=== PATIENT | female | born 1985 | race Caucasian/White ===

== ENCOUNTER 2020-02-29 13:12 | Emergency (ER) | payer BC, OTHER ==
[2020-02-29] MEDS ORDERED: Fluorescein 1 MG Ophth Strip EYERT ONE (13:45)
--- NOTE | 2020-02-29 14:07 | EDM.PDOC ---
ED HPI GENERAL MEDICAL PROBLEM - General Chief Complaint: Eye Problems Stated Complaint: R EYE INJURY Time Seen by Provider: 02/29/20 13:35 Source of Information: Reports: Patient History Limitations: Reports: No Limitations - History of Present Illness INITIAL COMMENTS - FREE TEXT/NARRATIVE: The patient presents with right eye irritation. The patient is a home health nurse and she got some of her patient's medicine in her right eye. She was putting some cuvposa down a G-tube and some sprayed in her right eye. She irrigated about 4 times. This happened on Sunday. She now has some eye irritation and some redness. She has no vision changes. Onset: Sudden Duration: Day(s): Location: Reports: Other (right eye) Quality: Reports: Ache Severity: Moderate Improves with: Reports: None Worsens with: Reports: None Associated Symptoms: Reports: No Other Symptoms Head Pain Score (Numeric/FACES): 4 - Related Data Allergies Allergy/AdvReac Type Severity Reaction Status Date / Time Penicillins Allergy Hives Verified 02/29/20 13:36 codeine AdvReac Severe Anxiety Verified 02/29/20 13:36 Home Meds: Home Meds Ciprofloxacin [Ciprofloxacin 0.3% Ophth Soln] 1 drop EYERT Q4HR #1 bottle 02/29/20 [Rx] Past Medical History Musculoskeletal History: Reports: Fibromyalgia, Other (See Below) Other Musculoskeletal History: autoimmune d/o - Past Surgical History HEENT Surgical History: Reports: Eye Surgery, Other (See Below) Other HEENT Surgeries/Procedures: right eye tendon repair as an infant Social & Family History - Tobacco Use Smoking Status *Q: Current Every Day Smoker Years of Tobacco use: 15 Packs/Tins Daily: 0.5 - Caffeine Use Caffeine Use: Reports: Coffee - Recreational Drug Use Recreational Drug Use: No ED ROS GENERAL - Review of Systems Review Of Systems: See Below Constitutional: Reports: No Symptoms HEENT: Reports: Eye Pain (right) Respiratory: Reports: No Symptoms Cardiovascular: Reports: No Symptoms Endocrine: Reports: No Symptoms GI/Abdominal: Reports: No Symptoms : Reports: No Symptoms Musculoskeletal: Reports: No Symptoms Skin: Reports: No Symptoms Neurological: Reports: No Symptoms ED EXAM GENERAL W FULL EYE - Physical Exam Exam: See Below Exam Limited By: No Limitations General Appearance: Alert, No Apparent Distress Visual Acuity (R) 20/: 20 Visual Acuity (L) 20/: 100 With Correction: No Eyelids: Bilateral: Normal Appearance Conjunctiva & Sclera: Right: Injected Cornea Exam: Right: Corneal Abrasion (small) Extraocular Movements: Bilateral: Intact Pupillary Reaction: Bilateral: Brisk Anterior Chamber: Right: Normal Appearance Respiratory/Chest: No Respiratory Distress Course - Vital Signs Last Recorded V/S: Last Vital Signs Temp 98.4 F 02/29/20 13:30 Pulse 87 02/29/20 13:30 Resp 18 02/29/20 13:30 BP 125/81 02/29/20 13:30 Pulse Ox 100 02/29/20 13:30 - Orders/Labs/Meds Meds: Medications Discontinued Medications Generic Name Dose Route Start Last Admin Trade Name Mitchell PRN Reason Stop Dose Admin Fluorescein Sodium 1 mg 02/29/20 13:45 Ful-Nathalie EYERT 02/29/20 13:46 ONETIME ONE - Re-Assessments/Exams Free Text/Narrative Re-Assessment/Exam: 02/29/20 14:06 I called poison control and they recommended a slight lamp exam with fluorosceen. I did that and there was a small abrasion. I will get her on some cipro drops. Departure - Departure Time of Disposition: 14:10 Disposition: Home, Self-Care 01 Condition: Good Clinical Impression: Corneal abrasion Qualifiers: Encounter type: initial encounter Laterality: right Qualified Code(s): S05.01XA - Injury of conjunctiva and corneal abrasion without foreign body, right eye, initial encounter - Discharge Information *PRESCRIPTION DRUG MONITORING PROGRAM REVIEWED*: Not Applicable *COPY OF PRESCRIPTION DRUG MONITORING REPORT IN PATIENT GENESIS: Not Applicable Prescriptions: Ciprofloxacin [Ciprofloxacin 0.3% Ophth Soln] 1 drop EYERT Q4HR #1 bottle Referrals: PCP,None [Primary Care Provider] - Additional Instructions: Use the cipro drops 1 drop in the right eye every 4 hours while awake. Take tylenol or motrin for any pain. Follow up with an ventilating engineer in town next week. Please return if you are worse. Sepsis Event Note (ED) - Evaluation Sepsis Screening Result: No Definite Risk - Focused Exam Vital Signs: Vital Signs Temp Pulse Resp BP Pulse Ox 02/29/20 13:30 98.4 F 87 18 125/81 100
== END 2020-02-29 14:15 | disposition home or self-care (01) ==
LOC: JD.ED 13:12
DX: S05.01XA Injury of conjunctiva and corneal abrasion without foreign body, right eye, initial encounter (principal); F17.210 Nicotine dependence, cigarettes, uncomplicated; Z88.5 Allergy status to narcotic agent; Z88.0 Allergy status to penicillin; X58.XXXA Exposure to other specified factors, initial encounter
CPT/HCPCS: 99282; 99283

== ENCOUNTER 2022-06-04 09:20 | Emergency (ER) | payer BC | END 2022-06-04 13:25 | disposition home or self-care (01) | LOC: JD.ED 09:20 | DX: R00.2 Palpitations (principal); Z88.5 Allergy status to narcotic agent; Z88.0 Allergy status to penicillin | CPT/HCPCS: 36415; 80053; 85025; 93005; 93010; 93225; 93226; 99283; 99285 ==

== ENCOUNTER 2022-09-19 14:55 | Observation (INO) | payer BC ==
[2022-09-19] MEDS ORDERED: methylPREDNISolone Sodium Succinate 125 MG/2 ML SDV IVPUSH ONE (15:09)
[2022-09-19] MEDS ORDERED: Famotidine 20 MG/2 ML SDV IVPUSH ONE (15:09)
[2022-09-19] MEDS ORDERED: HYDROmorphone 0.5 MG/0.5 ML Syringe IVPUSH ONE (15:09)
[2022-09-19] MEDS ORDERED: diphenhydrAMINE 50 MG/ML SDV IVPUSH ONE (15:09)
[2022-09-19] MEDS ORDERED: Sodium Chloride 0.9% 10 ML Syringe FLUSH PRN (15:09)
[2022-09-19] MEDS ORDERED: Sodium Chloride 0.9% 1,000 ML IV ONE (15:09)
[2022-09-19] MEDS ORDERED: LORazepam 2 MG/ML SDV IVPUSH ONE (16:12)
[2022-09-19] MEDS ORDERED: Hydrocortisone 1% Crm 30 GM Tube TOP ONE (16:12)
[2022-09-19] MEDS ORDERED: Gabapentin 300 MG Cap PO PRN (21:25)
[2022-09-19] MEDS ORDERED: HYDROmorphone 0.5 MG/0.5 ML Syringe IVPUSH PRN (21:28)
[2022-09-19] MEDS ORDERED: Lidocaine 4% 1 each Patch TOP SCH (21:30)
[2022-09-19] MEDS: diphenhydrAMINE 50 MG Cap PO SCH (21:44)
[2022-09-20] MEDS: diphenhydrAMINE 50 MG Cap PO SCH (03:24)
[2022-09-20] MEDS ORDERED: predniSONE 20 MG Tab PO SCH (07:00)
[2022-09-20] MEDS ORDERED: diphenhydrAMINE 50 MG Cap PO SCH (08:00)
[2022-09-20] MEDS ORDERED: LORazepam 1 MG Tab PO PRN (10:50)
== END 2022-09-20 15:54 | disposition home or self-care (01) ==
LOC: JD.ED 14:55 → JD.MS 18:07
PROVIDERS: ADMIT Pediatrics; ATTEND Pediatrics
DX: T78.40XA Allergy, unspecified, initial encounter (principal); F17.210 Nicotine dependence, cigarettes, uncomplicated; M79.10 Myalgia, unspecified site; Z79.899 Other long term (current) drug therapy; Z88.0 Allergy status to penicillin; Z88.5 Allergy status to narcotic agent; Z98.890 Other specified postprocedural states
CPT/HCPCS: 36415; 81003; 85027; 85652; 86038; 86140; 86160; 86162; 96361; 96374; 96375; 96376; 99284; A9270; G0378; J1170; J1200; J2060; J2930; J3490; J7030; J7512; Q0163

== ENCOUNTER 2023-07-25 11:59 | Emergency (ER) | payer BC ==
[2023-07-25] MEDS ORDERED: Sodium Chloride 0.9% 10 ML Syringe FLUSH PRN (12:24)
[2023-07-25] MEDS ORDERED: Metoclopramide 10 MG/2 ML SDV IVPUSH ONE (12:25)
[2023-07-25] MEDS ORDERED: diphenhydrAMINE 50 MG/ML SDV IVPUSH ONE (12:26)
[2023-07-25] MEDS ORDERED: Ketorolac 30 MG/ML SDV IVPUSH ONE (12:26)
[2023-07-25] MEDS ORDERED: Sodium Chloride 0.9% 1,000 ML IV SCH (12:30)
[2023-07-25 12:40] LABS: BASOPHILS ABSOLUTE AUTO 0.1 K/mm3 (0.0-0.2); BASOPHILS PERCENT AUTO 1.3 % (0.0-1.0); EOSINOPHILS ABSOLUTE AUTO 0.1 K/mm3 (0.0-0.4); EOSINOPHILS PERCENT AUTO 1.3 % (0.0-6.0); HEMOGLOBIN 14.2 gm/dl (12.0-16.0); IMMATURE GRAN ABSOLUTE AUTO 0.02 K/mm3 (0.00-0.05); IMMATURE GRAN PERCENT AUTO 0.3 % (0.0-0.4); LYMPHOCYTES ABSOLUTE AUTO 1.7 K/mm3 (1.0-4.8); LYMPHOCYTES PERCENT AUTO 22.5 % (24.0-44.0); MEAN CORPUSCULAR HEMOGLOBIN 33.7 pg (28.0-32.0); MEAN CORPUSCULAR HGB CONC 34.6 g/dl (32.0-36.0); MEAN CORPUSCULAR VOLUME 97.4 fl (83.0-99.0); MONOCYTES ABSOLUTE AUTO 0.5 K/mm3 (0.0-0.8); NEUTROPHILS ABSOLUTE AUTO 5.3 K/mm3 (1.8-7.7); NEUTROPHILS PERCENT AUTO 68.6 % (41.0-71.0); PLATELET COUNT,PLT 156 K/mm3 (150-400); RED BLOOD CELL COUNT 4.21 M/mm3 (4.10-5.30); WHITE BLOOD CELL COUNT,WBC 7.72 K/mm3 (3.9-11.3)
[2023-07-25 12:55] LABS: A/G RATIO 1.4 (1-2); ALANINE AMINOTRANSFERASE,ALT 20 U/L (14-59); ALBUMIN 4.7 g/dl (3.4-5.0); ALKALINE PHOSPHATASE 55 U/L (46-116); ANION GAP 17.6 (5-15); ASPARTATE AMNIOTRANSFERASE,AST 15 U/L (15-37); BILIRUBIN TOTAL 0.8 mg/dL (0.2-1.0); BLOOD UREA NITROGEN,BUN 4 mg/dL (7-18); CALCIUM 9.4 mg/dL (8.5-10.1); CARBON DIOXIDE,CO2 24 mEq/L (21-32); CHLORIDE,CL 100 mEq/L (98-107); CREATININE 0.8 mg/dL (0.55-1.02); EST CRCL DRUG DOSING (CG) 73.48 mL/min; ESTIMATED GFR 96 mL/min (>60); GLUCOSE RANDOM 105 mg/dL (70-99); MAGNESIUM 1.8 mg/dL (1.8-2.4); POTASSIUM,K 3.6 mEq/L (3.5-5.1); SODIUM,NA 138 mEq/L (136-145); TSH 1.436 uIU/mL (0.358-3.74)
[2023-07-25 12:57] LABS: APPEARANCE,URINE CLEAR (Clear); BILIRUBIN,URINE NEGATIVE (Negative); COLOR,URINE LIGHT YELLOW (Yellow); GLUCOSE,URINE NEGATIVE (Negative); KETONES,URINE NEGATIVE (Negative); LEUKOCYTE ESTERASE,URINE TRACE (Negative); NITRITE,URINE NEGATIVE (Negative); OCCULT BLOOD,URINE NEGATIVE (Negative); PROTEIN,URINE NEGATIVE (Negative); UROBILINOGEN,URINE 0.2 (0.2-1.0)
[2023-07-25 13:03] LABS: TROPONIN I HIGH SENSITIVITY < 4 pg/mL (<=51)
[2023-07-25 13:07] LABS: SLIDE REVIEW ABNORMAL SMEAR
[2023-07-25 13:07] LABS: BACTERIA,URINE RARE /hpf (FEW); MUCUS,URINE RARE /hpf (FEW); RBC,URINE 0-5 /hpf (0-5); SQUAMOUS EPITHELIAL CELLS,UR 0-5 /hpf (0-5)
[2023-07-25 13:34] LABS: CORONAVIRUS COVID-19 NAA NEGATIVE (NEGATIVE); INFLUENZA A NAA NEGATIVE (NEGATIVE); RESPIRATORY SYNCYTIAL VIR NAA NEGATIVE (NEGATIVE)
[2023-07-25] MEDS ORDERED: Loperamide 2 MG Cap PO ONE (13:42)
== END 2023-07-25 14:16 | disposition home or self-care (01) ==
LOC: JD.ED 11:59
DX: R00.0 Tachycardia, unspecified (principal); E86.0 Dehydration; K52.1 Toxic gastroenteritis and colitis; T45.1X5A Adverse effect of antineoplastic and immunosuppressive drugs, initial encounter; Z20.822 Contact with and (suspected) exposure to COVID-19; Z86.16 Personal history of COVID-19; Z79.899 Other long term (current) drug therapy; Z88.0 Allergy status to penicillin; Z88.5 Allergy status to narcotic agent; Z91.048 Other nonmedicinal substance allergy status
CPT/HCPCS: 0241U; 36415; 80053; 81001; 83735; 84443; 84484; 85025; 87086; 93005; 96361; 96374; 96375; 99285; A9270; J1200; J1885; J2765; J3490; J7030; 93010; 99284